=== PATIENT | male | born 1935 | race American Indian/Alaskan Native ===

== ENCOUNTER 2017-06-25 16:43 | Emergency (ER) | payer MEDICARE ==
[2017-06-25 17:22] LABS: Bilirubin,Urine NEG (Negative); Blood,Urine NEG (Negative); Ketones,Urine NEG (Negative); Leukocyte Esterase,Urine NEG (Negative); Nitrite,Urine NEG (Negative); Protein,Urine <15 mg/dL mg/dL (Negative); Urobilinogen,Urine < 2.0 mg/dL (<2.0); WBC,Urine < 1.0 /HPF (0.0-6.0)
[2017-06-25] MEDS ORDERED: NACL 0.9% 1000 ML 1,000 ML IV ONE (20:10)
[2017-06-25] MEDS ORDERED: ZOFRAN IV ONE (20:10)
[2017-06-25] MEDS ORDERED: MORPHINE IV ONE (20:10)
[2017-06-25 20:14] LABS: Hematocrit 36.7 % (35.5-45.6); Hemoglobin 12.6 gm/dl (11.8-15.2); Mean Corpuscular HGB Conc 35 % (32-34); Mean Corpuscular Hemoglobin 29 pg (28-32); Mean Corpuscular Volume 84 fl (84-94); Platelet Count 186 K/mm3 (140-440); Red Blood Count 4.38 M/mm3 (3.65-5.03); Red Cell Distribution Width 15.5 % (13.2-15.2); White Blood Count 8.2 K/mm3 (4.5-11.0)
[2017-06-25 20:33] LABS: Anion Gap 20 mmol/L; BUN/Creatinine Ratio 18.33; Blood Urea Nitrogen 22 mg/dL (9-20); Calcium 8.9 mg/dL (8.4-10.2); Carbon Dioxide 24 mmol/L (22-30); Chloride 98.3 mmol/L (98-107); Glucose 86 mg/dL (75-100); Potassium 3.9 mmol/L (3.6-5.0); Sodium 138 mmol/L (137-145)
[2017-06-25] MEDS ORDERED: NACL ONE (20:40)
[2017-06-25 20:41] LABS: Alanine Aminotransferase 21 units/L (7-56); Albumin/Globulin Ratio 1.1 %; Alkaline Phosphatase 47 units/L (35-129); Total Protein 7.6 g/dL (6.3-8.2)
[2017-06-25 20:50] LABS: Bilirubin,Direct < 0.2 mg/dL (0-0.2); Bilirubin,Indirect 0.3 mg/dL
--- NOTE | 2017-06-25 21:23 | Cat Scan Report ---
FINAL REPORT EXAM: CT ABDOMEN PELVIS W CON HISTORY: abd pain COMPARISON: None available. TECHNIQUE: Contiguous axial images were obtained. Additional sagittal and coronal reformatted images were obtained. Administration of IV contrast given per institution protocol. Images submitted for interpretation. FINDINGS: Mild linear scarring or atelectasis at the lung bases. There is several subcentimeter low-attenuation hepatic lesions. These are too small to accurately characterize by CT, but may reflects cysts. No suspicious solid enhancing hepatic mass. No calcified gallstones or biliary dilatation. 8 millimeter low-attenuation splenic lesion which may reflect a small cyst or benign hemangioma. At the distal pancreatic tail there is a hypodense lesion which has a simple cystic appearance measuring 1.1 x 0.6 centimeters. No other focal pancreatic lesion. No peripancreatic stranding or fluid. Mild nodular thickening of the adrenal glands. No solid renal lesion. No hydronephrosis. Aorta and IVC are normal in caliber. Moderate severe calcified plaque along the aorta. Urinary bladder is unremarkable enlargement of the prostate gland measuring 6 x 5 centimeters. No free fluid or lymphadenopathy in the pelvic cavity. There are few pelvic phleboliths. The appendix is partially gas-filled and normal in caliber measuring 4 millimeters. Moderate large amount of stool in the colon. No focal inflammatory changes the bowel. Moderate degenerative changes of the lumbar spine. Lumbar vertebral body heights are preserved. Mild to moderate degenerative changes of the bony pelvis. IMPRESSION: No acute inflammatory changes. Moderate large amount of stool in the colon. Large and small bowel loops normal in caliber. The appendix is normal in caliber. Moderate enlargement of prostate gland. There are several subcentimeter low-attenuation hepatic lesions. These are too small to accurately characterize by CT, but may reflects cysts. There is a 1.1 x 0.6 centimeter simple appearing cystic structure in the pancreatic tail and 8 millimeter cyst versus hemangioma in the spleen. CT of the abdomen with pancreatic protocol suggested in the next 3 months to assess stability of the pancreatic lesion as well as for further evaluation. Alternatively, MRI of the abdomen with without contrast could be performed.
[2017-06-25 21:47] VITALS: BP 152/74
[2017-06-25] MEDS ORDERED: CITRATE OF MAGNESIA PO ONE (21:55)
--- NOTE | 2017-06-25 22:21 | Emergency Department Report ---
HPI - General Chief Complaint: Abdominal Pain Time Seen by Provider: 06/25/17 20:01 - HPI HPI: 81-year-old [place] male coming in is left flank and left lower quadrant pain starting on this morning patient had a history of constipation. he states that his pain is accompanied by nausea, constipation but no vomiting, no urinary symptoms and no diarrhea. Patient has not taking any medication at home for his symptoms. he denies any exacerbating factors. he denies any alleviating factors. he denies any recent travel, or unusual foods. he denies any sick contacts. MD Complaint: abdominal pain -: Gradual Location: Left flank Radiation: none Migration to: no migration Severity scale (0 -10): 5 Quality: sharp Improves With: nothing Associated Symptoms: Constipation ED Past Medical Hx - Past Medical History Hx Hypertension: Yes Additional medical history: Shingles - Surgical History Additional Surgical History: Hernia repair - Social History Smoking Status: Never Smoker Substance Use Type: None - Medications Home Medications: Home Medications Medication Instructions Recorded Confirmed Last Taken Type Dicyclomine [Bentyl] 10 mg PO QID #20 capsule 06/25/17 Unknown Rx Docusate Sodium [Colace] 100 mg PO BID #30 capsule 06/25/17 Unknown Rx ED Review of Systems ROS: Stated complaint: STOMACH PAIN Other details as noted in HPI Comment: All other systems reviewed and negative Cardiovascular: as per HPI Endocrine: no symptoms reported Gastrointestinal: abdominal pain, other (constipation) Physical Exam - Physical Exam Vital Signs: Vital Signs 06/25/17 06/25/17 06/25/17 16:49 19:43 20:12 Temperature 98.6 F 98.7 F Pulse Rate 113 H 84 Respiratory 18 20 20 Rate Blood Pressure 136/81 Blood Pressure 152/74 [Right] O2 Sat by Pulse 96 99 Oximetry Physical Exam: Physical Exam: - General Limitations: No Limitations General appearance: alert, in no apparent distress. - Head Head exam: Present: atraumatic, normocephalic - Eye Eye exam: Present: normal appearance - ENT ENT exam: Present: mucous membranes moist - Neck Neck exam: Present: normal inspection - Respiratory Respiratory exam: Present: normal lung sounds bilaterally. Absent: respiratory distress - Cardiovascular Cardiovascular Exam: Present: normal rhythm, normal rate. Absent: systolic murmur, diastolic murmur, rubs, gallop - GI/Abdominal GI/Abdominal exam: Present: soft, normal bowel sounds - Extremities Exam Extremities exam: Present: normal inspection - Back Exam Back exam: Present: normal inspection - Neurological Exam Neurological exam: Present: alert, oriented X3 - Psychiatric Psychiatric exam: normal affect and mood - Skin Skin exam: Present: warm, dry, intact, normal color. Absent: rash ED Course Vital Signs 06/25/17 06/25/17 06/25/17 16:49 19:43 20:12 Temperature 98.6 F 98.7 F Pulse Rate 113 H 84 Respiratory 18 20 20 Rate Blood Pressure 136/81 Blood Pressure 152/74 [Right] O2 Sat by Pulse 96 99 Oximetry ED Medical Decision Making - Lab Data Result diagrams: 06/25/17 20:01 06/25/17 20:01 Critical care attestation.: If time is entered above; I have spent that time in minutes in the direct care of this critically ill patient, excluding procedure time. ED Disposition Clinical Impression: Abdominal pain Qualifiers: Abdominal location: generalized Qualified Code(s): R10.84 - Generalized abdominal pain Constipation Qualifiers: Constipation type: unspecified constipation type Qualified Code(s): K59.00 - Constipation, unspecified Disposition: DC- TO HOME OR SELFCARE Is pt being admited?: No Does the pt Need Aspirin: No Condition: Stable Prescriptions: Dicyclomine [Bentyl] 10 mg PO QID #20 capsule Docusate Sodium [Colace] 100 mg PO BID #30 capsule Referrals: KARLA BLACKBURN MD [Primary Care Provider] - 3-5 Days EMMANUEL RIVERA MD [Staff Physician] - 3-5 Days
== END 2017-06-25 22:32 | disposition home or self-care (01) ==
LOC: ED 16:43
DX: R10.84 Generalized abdominal pain (principal); K59.00 Constipation, unspecified; I10 Essential (primary) hypertension; Z98.890 Other specified postprocedural states
CPT/HCPCS: 36415; 74177; 80048; 80074; 81001; 85027; 96361; 96374; 96375; 99284; J2270; J2405; J7030; Q9967